=== PATIENT | male | born 1960 | race African-American/Black ===

== ENCOUNTER 2020-06-18 20:15 | Emergency (ER) | payer OTHER ==
[~2020-06-18] VITALS: Ht 190.5 cm; Wt 217.7 kg
[2020-06-18] MEDS ORDERED: LIPITOR 10 MG10 M1 PO (20:56)
[2020-06-18] MEDS ORDERED: BYSTOLIC20 MG PO (20:56)
[2020-06-18] MEDS ORDERED: LISINOPRIL20 MG PO (20:57)
[2020-06-18] MEDS ORDERED: LEVEMIR100 UNIT/2 SUBQ (20:57)
[2020-06-18] MEDS ORDERED: NORVASC10 MG PO (20:58)
[2020-06-18] MEDS ORDERED: NOVOLOG FL100 UNIT/M SUBQ (20:58)
[2020-06-18] MEDS ORDERED: GLYBURIDE-METF1 EACH PO (20:58)
[2020-06-18] MEDS ORDERED: ATROVENT HFA14 GM INH (20:59)
[2020-06-18] MEDS ORDERED: FLONASE 0.05%50 MCG NARES (20:59)
[2020-06-18] MEDS ORDERED: PROAIR HFA8.5 GM INH (20:59)
[2020-06-18] MEDS ORDERED: PULMICORT FLEX90 MCG INH (21:00)
[2020-06-18] MEDS ORDERED: DOXYCYCLINE 10100 MG PO (21:11)
[2020-06-18 22:00] VITALS: BP 141/67
== END 2020-06-18 21:55 | disposition home or self-care (01) ==
LOC: ER 20:15
DX: J01.90 Acute sinusitis, unspecified (principal); I10 Essential (primary) hypertension; E11.9 Type 2 diabetes mellitus without complications; E78.5 Hyperlipidemia, unspecified; Z79.4 Long term (current) use of insulin; Z79.899 Other long term (current) drug therapy

== ENCOUNTER 2020-07-23 11:14 | Emergency (ER) | payer OTHER ==
[~2020-07-23] VITALS: Ht 190.5 cm; Wt 185.5 kg
[~2020-07-23 11:14] MED LIST: ATROVENT HFA14 GM INH; BYSTOLIC20 MG PO; DOXYCYCLINE 10100 MG PO; FLONASE 0.05%50 MCG NARES; GLYBURIDE-METF1 EACH PO; LEVEMIR100 UNIT/2 SUBQ; LIPITOR 10 MG10 M1 PO; LISINOPRIL20 MG PO; NORVASC10 MG PO; NOVOLOG FL100 UNIT/M SUBQ; PROAIR HFA8.5 GM INH; PULMICORT FLEX90 MCG INH
[2020-07-23 13:00] VITALS: BP 137/92
== END 2020-07-23 13:10 | disposition home or self-care (01) ==
LOC: ER 11:14
DX: M79.671 Pain in right foot (principal); I10 Essential (primary) hypertension; E78.5 Hyperlipidemia, unspecified; E11.9 Type 2 diabetes mellitus without complications